=== PATIENT | female | born 1975 | race Caucasian/White ===

== ENCOUNTER → 2022-04-17 07:17 | Outpatient (CLI) | payer OTHER, SELFPAY ==
--- NOTE | ~2022-04-17 | MM_ITS ---
EXAMINATION: MM screening [facility] BI w sarwat HISTORY: Screening mammogram TECHNIQUE: Craniocaudal and mediolateral oblique 3-D tomosynthesis images were obtained and synthetic 2-D images were generated. CAD analysis was submitted and interpreted. COMPARISON: 10/08/2018, 08/01/2016, 02/01/2016, 01/04/2016 BREAST PARENCHYMAL COMPOSITION: There are scattered areas of fibroglandular density. FINDINGS: No suspicious mass, calcification, or architectural distortion are identified in either gretta ast to suggest malignancy. There has been no suspicious interval change. IMPRESSION: 1. No mammographic evidence of malignancy. 2. Recommend routine screening mammography in one year. BI-RADS Category 1: Negative Reviewed, dictated and finalized at location A. [employer]
== END ==
PROVIDERS: PCP Family Medicine; Visit Provider Family Medicine
DX: Z12.31 Encounter for screening mammogram for malignant neoplasm of breast (principal)
CPT/HCPCS: 77063; 77067

== ENCOUNTER 2022-11-18 12:04 | Emergency (ER) | payer BC, SELFPAY ==
--- NOTE | ~2022-11-18 | XR_ITS ---
Clinical Indication: Lightheadedness PA and lateral views of the chest: Comparison: 05/28/2018 Findings: The lungs are clear, without evidence of focal consolidation or pleural effusion. Cardiome diastinal silhouette is within normal limits. Bones and soft tissues are unremarkable. Impression: Normal chest. Reviewed, dictated and finalized at [facility]. Impression: Normal chest.
[2022-11-18 12:19] VITALS: BP 178/63; PULSE 69; RESP 18; TEMP 36.1; O2SAT 100
[2022-11-18 12:34] VITALS: BP 162/76; PULSE 63
[2022-11-18 12:36] VITALS: BP 153/86; PULSE 85
[2022-11-18 12:48] VITALS: BP 167/96; PULSE 74
[2022-11-18] MEDS: ONDANSETRON HCL ODT 4 MG TABLET PO (13:01)
[2022-11-18] MEDS: LACTATED RINGERS 1,000 ML 999 ML IV CONT (13:01)
[2022-11-18 13:13] LABS: Basophils Percent Auto 0.4 % (0.2-1.2); Eosinophils Percent Auto 0.5 % (0-4.4); Hematocrit 42.7 % (37.0-47.0); Immature Granulocyte Absolute 0.03 K/mm3 (0.00-0.031); Immature Granulocyte Percent A 0.4 % (0-0.5); Lymphocytes Absolute Auto 1.33 K/mm3 (0.9-3.2); Lymphocytes Percent Auto 18.1 % (18.3-44.2); Mean Corpuscular HGB Conc 32.8 g/dl (32-36); Mean Corpuscular Hemoglobin 29.9 pg (26-34); Mean Corpuscular Volume 91.2 fl (80-100); Mean Platelet Volume 9.4 fl (7.4-10.4); Monocytes Absolute Auto 0.4 K/mm3 (0.1-0.6); Monocytes Percent Auto 4.8 % (2.6-8.5); Neutrophils Absolute Auto 5.6 K/mm3 (1.3-6.7); Neutrophils Percent Auto 75.8 % (45.5-73.1); Platelet Count Result 248 k/mm3 (150-375); Red Blood Count 4.68 M/mm3 (4.2-5.4); Red Cell Distribution Width 12.2 % (11.5-14.5); White Blood Count 7.3 K/mm3 (4.5-10.0)
[2022-11-18 13:22] LABS: Alanine Aminotransferase 33 U/L (6-35); Albumin Level 4.8 g/dL (3.5-5.1); Alkaline Phosphatase 68 U/L (38-126); Anion Gap 9 mmol/L (8-16); Aspartate Amino Transferase 33 U/L (14-36); Bilirubin,Total 0.6 mg/dL (0.2-1.3); Blood Urea Nitrogen 9 mg/dL (7-17); Calcium 9.7 mg/dL (8.4-10.2); Carbon Dioxide 28 mmol/L (22-30); Chloride 102 mmol/L (98-107); Estimated CRCL calculation 96 ml/min; Estimated Glomerular Filt Rate > 60; Glucose 118 mg/dL (65-110); Magnesium 1.8 mg/dL (1.6-2.3); Sodium 139 mmol/L (137-145)
[2022-11-18 14:30] LABS: Appearance Urine Clear (Clear); Bilirubin Urine Negative (Negative); Blood Urine Negative (Negative); Color Urine Yellow (Yellow); Glucose Urine UA Negative (Negative); Ketones Urine Negative (Negative); Leukocyte Esterase Ur Negative LEU/UL (Negative); Nitrate Urine Negative (Negative); Protein Urine Negative (Negative); Specific Grav Ur 1.005 (1.001-1.035); Urobilinogen Urine 0.2 mg/dL (<2.0); pH Urine 5.5 (5.0-9.0)
--- NOTE | 2022-11-18 14:43 | ED.DIZZY ---
HPI - Dizziness General Chief Complaint: Dizziness Stated Complaint: DIZZINESS X5DAYS Time Seen by Provider: 11/18/22 12:26 History of Present Illness HPI Narrative: This is a 47-year-old female with no significant past medical history, who presents to the emergency department complaining of some lightheadedness for the past 5 days. The patient states 5 days ago she, she underwent a more strenuous exercise than usual and drink an unfamiliar protein drink. Shortly thereafter, she developed significant amount of nonbloody diarrhea and nausea. She felt lightheaded but no weakness, numbness or loss of vision. Related Data Allergies Allergy/AdvReac Type Severity Reaction Status Date / Time No Known Allergies Allergy Unverified 05/28/18 22:16 Review of Systems Review of Systems: CONSTITUTIONAL: Denies fever, chills, or sweats. CARDIOVASCULAR: Denies chest pain, palpitations, or edema. RESPIRATORY: Denies cough or dyspnea. GASTROINTESTINAL: Nausea denies abdominal pain, vomiting, or diarrhea. GENITOURINARY: Denies dysuria or hematuria. SKIN: Denies rash or itching. MUSCULOSKELETAL: Denies back pain, joint pain, or myalgia. NEUROLOGIC: Intermittent lightheadedness denies headache, numbness, or weakness. PSYCHIATRIC: Denies anxiety or depression. [facility] Social History Social History Smoking status: Never smoker Second hand tobacco smoke exposure: No Alcohol intake: current Exam Narrative: GENERAL: Well-developed, well-nourished, and in no acute distress. HEAD: Normocephalic, atraumatic. EYES: PERRLA and EOMI. ENT: Nares clear, no rhinorrhea or epistaxis. Mucous membranes moist. Oropharynx without tonsillar hypertrophy exudate or other lesions. NECK: Supple. No adenopathy or masses. No carotid bruits or JVD CHEST: Clear to auscultation. No respiratory distress. No wheezes rales or rhonchi HEART: Regular rate and rhythm. No murmur heard. Normal peripheral pulses. ABDOMEN: Soft, nontender, nondistended, normal active bowel sounds. EXTREMITIES: Normal range of motion. No edema. SKIN: Warm, dry, no rash. NEURO: No focal deficits. Alert and oriented x3. Strength 5/5 in all extremities, sensation intact bilaterally, no noted ataxia. Hints exam negative PSYCH: Normal mood and affect. Course Course Emergency Course: 14:47 - The patient's labs are unremarkable including an normal CBC and CMP. The patient states she feels improved after IV fluids and sublingual Zofran. Chest x-ray is unremarkable. Will discharge with recommendation for regular hydration and follow-up with her primary care doctor. Discussed return and emergency precautions including signs/symptoms of ACS and respiratory distress. The patient voiced understanding and is comfortable with plan. All questions answered to her satisfaction. Vital Signs Vital signs: Vital Signs Temperature 97.0 F L 11/18/22 12:19 Pulse Rate 69 11/18/22 12:19 Respiratory Rate 18 11/18/22 12:19 Blood Pressure 178/63 H 11/18/22 12:19 Pulse Oximetry 100 11/18/22 12:19 Oxygen Delivery Room Air 11/18/22 12:19 Temperature 97.0 F L 11/18/22 12:19 Pulse Rate 74 11/18/22 12:48 Respiratory Rate 18 11/18/22 12:19 Blood Pressure 167/96 H 11/18/22 12:48 Pulse Oximetry 100 11/18/22 12:19 Oxygen Delivery Room Air 11/18/22 12:19 MDM - Dizziness MDM Narrative Medical decision making narrative: Plan: Labs, imaging, IV fluids, reassess Differential Diagnosis Differential diagnosis: Likely orthostatic hypotension and other (Dehydration, metabolic abnormality, pneumothorax, other) Lab Data 11/18/22 13:08 11/18/22 13:08 Labs: Lab Results 11/18/22 11/18/22 Range/Units 13:08 14:01 WBC 7.3 (4.5-10.0) K/mm3 RBC 4.68 (4.2-5.4) M/mm3 Hgb 14.0 (12.0-15.0) g/dL Hct 42.7 (37.0-47.0) % MCV 91.2 (80-100) fl MCH 29.9 (26-34) pg MCHC
[2022-11-18 14:51] VITALS: BP 141/70; PULSE 55; RESP 14; O2SAT 100
[2022-11-18 14:58] LABS: Add Urine Microscopic? NO
== END 2022-11-18 14:52 | disposition home or self-care (01) ==
PROVIDERS: Emergency Provider Preventive Medicine Aerospace Medicine; PCP Family Medicine
DX: R42 Dizziness and giddiness (principal); R11.0 Nausea
CPT/HCPCS: 36415; 71046; 80053; 81003; 81025; 83735; 85025; 96360; 99283; A9270; J7120